=== PATIENT | female | born 1935 | race Caucasian/White ===

== ENCOUNTER 2017-11-02 14:36 | Outpatient (CLI) | payer MEDICARE | END 2017-11-02 14:37 | disposition home or self-care (01) | LOC: BICRAD 14:36 | PROVIDERS: ATTEND Internal Medicine | DX: M54.2 Cervicalgia (principal); R53.83 Other fatigue; M47.892 Other spondylosis, cervical region | CPT/HCPCS: 36415; 71046; 72040; 80048; 83036; 85025 ==

== ENCOUNTER 2018-02-24 14:22 | Outpatient (CLI) | payer MEDICARE, OTHER ==
--- NOTE | 2018-02-24 15:48 | BD ---
DEXA BONE DENSITOMETRY: (Dual energy X-ray Absorptiometry) 02/24/18 HISTORY: 83-year-old postmenopausal white female for age-related osteoporosis screening examination. Height 64 minutes. Weight 149 lb. Age of menopausal 48 years. FINDINGS: The bone mineral density (BMD) is given in grams per square centimeter (g/cm2): LUMBAR SPINE: BMD(g/cm2) T-score Z-score L1: 1.105 1.0 3.4 L2: 1.180 1.4 4.1 L3: 1.189 1.0 3.8 L4: 1.112 0.5 3.4 Total: 1.146 0.9 3.6 HIP: Femoral neck: 0.671 -1.6 0.7 Total: 0.863 -0.6 1.5 FRAX WHO Fracture Risk Assessment Tool: 10 Year Fracture Risk * Major osteoporotic fracture: 21% Hip fracture: 6.4% Reported Risk Factors: [place](), Neck BMD=0.671, BMI=25.6, and glucocorticoid use. * Fracture probability is calculated for an untreated patient. Fracture probability may be lower if the patient has received treatment. IMPRESSION: 1) The mean bone mineral density of the lumbar spine is normal. Fracture risk is not increased. 2) The bone mineral density of the femoral neck is osteopenic. Fracture risk is increased. KARELY Padron POS: LORRAINE
== END 2018-02-24 14:23 | disposition home or self-care (01) ==
LOC: BICMAMMO 14:22
PROVIDERS: ATTEND Obstetrics & Gynecology
DX: Z12.31 Encounter for screening mammogram for malignant neoplasm of breast (principal); Z13.820 Encounter for screening for osteoporosis; M85.859 Other specified disorders of bone density and structure, unspecified thigh; R92.1 Mammographic calcification found on diagnostic imaging of breast; Z79.890 Hormone replacement therapy
CPT/HCPCS: 77063; 77067; 77080

== ENCOUNTER 2018-10-10 13:15 | Outpatient (CLI) | payer MEDICARE, OTHER ==
--- NOTE | 2018-10-10 13:37 | RAD ---
RIGHT KNEE 4 VIEWS: HISTORY: Pain, fall in August, arthritis. FINDINGS: No fracture, dislocation, or other acute process. IMPRESSION: Unremarkable right knee. POS: OFF
== END 2018-10-10 13:16 | disposition home or self-care (01) ==
LOC: BICRAD 13:15
PROVIDERS: ATTEND Internal Medicine
DX: M17.11 Unilateral primary osteoarthritis, right knee (principal)

== ENCOUNTER 2019-03-29 10:40 | Outpatient (CLI) | payer MEDICARE, OTHER ==
--- NOTE | 2019-03-29 14:14 | MMO ---
Bilateral MAMMO Bilat Screen [facility]. CLINICAL HISTORY: Patient is 84 years old and is seen for screening. The patient has no family history of breast cancer. The patient has no personal history of cancer. VIEWS: The views performed were: bilateral craniocaudal with tomosynthesis and bilateral mediolateral oblique with tomosynthesis. FILMS COMPARED: The present examination has been compared to prior imaging studies performed at [facility] on 07/05/2014, 11/25/2015, 01/07/2017 and 02/24/2018. This study has been interpreted with the assistance of computer-aided detection. MAMMOGRAM FINDINGS: There are scattered fibroglandular densities. Finding 1: There are stable benign appearing calcifications seen in both breasts. Finding 2: There are stable focal asymmetries seen in both breasts. There are no suspicious masses, suspicious calcifications, or new areas of architectural distortion. IMPRESSION: THERE IS NO MAMMOGRAPHIC EVIDENCE OF MALIGNANCY. A ROUTINE FOLLOW-UP MAMMOGRAM IN 1 YEAR IS RECOMMENDED. THE RESULTS OF THIS EXAM WERE SENT TO THE PATIENT. ACR BI-RADS Category 2 - Benign finding MAMMOGRAPHY NOTE: 1. A negative mammogram report should not delay a biopsy if a dominant of clinically suspicious mass is present. 2. Approximately 10% to 15% of breast cancers are not detected by mammography. 3. Adenosis and dense breasts may obscure an underlying neoplasm. Reported by: DESIRE ACKERMAN MD Electonically Signed: [id number]
== END 2019-03-29 10:41 | disposition home or self-care (01) ==
LOC: BICMAMMO 10:40
PROVIDERS: ATTEND Obstetrics & Gynecology
DX: Z12.31 Encounter for screening mammogram for malignant neoplasm of breast (principal)
CPT/HCPCS: 77063; 77067

== ENCOUNTER 2019-07-24 13:30 | Outpatient (CLI) | payer MEDICARE, OTHER ==
--- NOTE | 2019-07-24 15:18 | MRI ---
MRI cervical spine noncontrast HISTORY: Neck pain with bilateral radiculopathy. Unsteady gait. FINDINGS: There is gentle reversal of the normal lordotic curvature. Desiccation of all of the interv ertebral discs. Vertebral body heights are maintained. Heterogeneous bone marrow signal with mild discogenic endplate changes. C2-3: Mild osteophytosis. Central canal and neural foramina are patent. C3-4: Mild disc space narrowing. Minimal degenerative spondylolisthesis. Circumferential degenerative changes. Mild stenosis of the central canal. Mild right and moderate left foraminal stenoses. C4-5: Disc space narrowing. Mild posterior osteophyte/disc complex. Circumferential degenerative brannon ges. Moderate stenosis of the central canal. Severe stenosis of each neural foramen. C5-6: Disc space narrowing. Mild posterior osteophyte/disc complex. Circumferential degenerative brannon ges. Moderate stenosis of the central canal. Moderate right and severe left foraminal stenoses. C6-7: Disc space narrowing. Mild posterior osteophyte/disc complex. Circumferential degenerative brannon ges. Moderate stenosis of the central canal and each neural foramen. C7-T1: Mild osteophytosis. Central canal and neural foramina are patent. IMPRESSION : Degenerative changes throughout the cervical spine as detailed above, including stenoses most severel y involving the neural foramina at the C4-5 and C5-6 levels.
--- NOTE | 2019-07-24 16:13 | MRI ---
MRI lumbar spine noncontrast: HISTORY: Chronic back pain, extending down both legs. Unsteady gait. COMPARISON: 07/29/2014 FINDINGS: Slightly heterogeneous T1 marrow signal intensity with associated T2 and STIR hyperintensity along th e right aspect of the L1-L2 disc space suggesting type I Modic change. Vertebral body heights are maintained. There is no fracture. There is interval development of 0.5 cm of anterolisthesis of L4 up on L5. No associated spondylolysis. There is appropriate signal intensity of the visualized solid organs and paraspinal muscles. T2 hyper intensity in the posterior left renal cortex, compatible with a 2.5 cm cyst. Conus medullaris terminates at the superior aspect of L1 T12-L1:Disc desiccation with mild loss of disc space height. No evidence of high-grade central canal stenosis. Moderate bilateral neural foraminal narrowing L1-L2:Disc desiccation with mild loss of disc space height. Broad-based disc bulge minimally flattens the ventral thecal sac. No significant central canal stenosis. Moderate right and mild left neural foraminal narrowing L2-L3:Disc desiccation with mild loss of disc space height. There is a broad-based disc bulge with a right subarticular disc herniation. There is mass effect and partial obscuration traversing right L3 nerve root. Overall mild central canal stenosis. Mild to moderate right foraminal narrowing due to disc material. Patent left foraminal L3-L4:Disc desiccation with mild loss of disc space height. Broad-based disc bulge, ligament flavum t hickening and facet hypertrophy result in mild central canal stenosis. There is partial obscuration of bilateral traversing L4 nerve root secondary to disc material. Mild bilateral neural foraminal winsome rowing L4-L5:Disc desiccation with mild loss of disc space height. Broad-based disc bulge, ligamentum flavum thickening and facet hypertrophy result in moderate central canal stenosis. Right neural foramen is mildly narrowed. Moderate left foraminal narrowing. Left foraminal narrowing is in part due to dis c material, posterior element hypertrophy as well as a synovial cyst, measuring 0.6 cm. L5-S1:Disc desiccation with severe loss of disc space height. Broad-based disc bulge minimally encroa ches upon the left and right subarticular zone. Contact upon both traversing S1 nerve roots without significant mass effect or obscuration. There is ligamentum flavum thickening and facet hypertrophy. No significant central canal stenosis. Mild to moderate bilateral neural foraminal narrowing IMPRESSION: Multilevel degenerative changes of the lumbar spine as detailed above. Transcribed Date/Time: 07/24/2019 4:28 PM
== END 2019-07-24 13:31 | disposition home or self-care (01) ==
LOC: TBSIIMAG 13:30
PROVIDERS: ATTEND Neurological Surgery
DX: M54.2 Cervicalgia (principal); M54.5 Low back pain; M47.816 Spondylosis without myelopathy or radiculopathy, lumbar region; M47.812 Spondylosis without myelopathy or radiculopathy, cervical region; M48.02 Spinal stenosis, cervical region
CPT/HCPCS: 72141; 72148